=== PATIENT | female | born 1995 | race Caucasian/White ===

== ENCOUNTER 2020-12-25 07:45 | Day surgery (SDC) | payer OTHER ==
[~2020-12-25] VITALS: Ht 165.1 cm; Wt 57.7 kg
--- NOTE | 2020-12-25 08:00 | NUR ---
Patient admitted to [facility] with a steady gait. Consent reviewed and signed. IV started in L hand due to R arm restriction. SEE PHYSICAL ASSESSMENT.
[2020-12-25] MEDS ORDERED: MICROGESTIN FE1 TA1 PO (08:10)
[2020-12-25] MEDS ORDERED: PRILOSEC 20MG20 MG PO (08:10)
[2020-12-25 08:30] VITALS: BP 122/83; PULSE 97; TEMP 98.4
[2020-12-25 09:50] VITALS: BP 116/74; PULSE 89; TEMP 98.3
[2020-12-25 10:05] VITALS: BP 123/75; PULSE 81
[2020-12-25 10:20] VITALS: BP 115/78; PULSE 76
--- NOTE | 2020-12-25 13:56 | NUR ---
0950- Pt returns from endo procedure via cart to [facility] . Pt ambulates from cart to recliner with RN assist. Monitors on and alarms set. Call light within reach. Pt alert and oriented. Pt requests water and muffin. Pt denies any pain or nausea. 1005- Pt taking food and drink well. No complications noted. 1020- Discharge instructions given to pt. All questions answered to pt and cousin's satisfaction. Handed to pt eduaction material and discharge information. 1035- Pt transferred out of the hospital via wheelchair and RN assist, to private vehicle driven by cousin.
== END 2020-12-25 10:35 | disposition home or self-care (01) ==
LOC: SDCO 07:45
DX: T18.198A Other foreign object in esophagus causing other injury, initial encounter (principal); R10.13 Epigastric pain; R63.4 Abnormal weight loss; R14.0 Abdominal distension (gaseous); R10.9 Unspecified abdominal pain; K21.9 Gastro-esophageal reflux disease without esophagitis; Z79.899 Other long term (current) drug therapy; Z83.71 Family history of colonic polyps
CPT/HCPCS: J2704; J7120